=== PATIENT | female | born 1980 | race Caucasian/White ===

== ENCOUNTER → 2018-01-05 | Outpatient (CLI) | payer OTHER ==
[2018-01-05 13:41] LABS: BASO # 0.1 10^3/uL (0.0-0.2); EOS # 0.1 10^3/uL (0.0-0.50); EOS % 2.2 % (0.0-3.0); HEMATOCRIT 41.6 % (36.0-47.0); HEMOGLOBIN 14.3 g/dl (12.0-15.5); IMMATURE GRANULOCYTE % 0.8 % (0-3.0); LYMPH # 1.9 10^3/uL (1.5-4.5); LYMPH % 31.4 % (24.0-44.0); MEAN CORPUSCULAR HEMOGLOBIN 29.9 pg (27.0-33.0); MEAN CORPUSCULAR HGB CONC 34.4 g/dl (32.0-36.5); MONO # 0.4 10^3/uL (0.0-0.8); MONO % 6.2 % (0.0-5.0); NEUTROPHILS # 3.5 10^3/uL (1.8-7.7); NEUTROPHILS % 58.4 % (36.0-66.0); PLATELET COUNT, AUTOMATED 215 10^3/uL (150-450); RED BLOOD COUNT 4.78 10^6/uL (4.00-5.40); RED CELL DISTRIBUTION WIDTH 12.3 % (11.5-14.5)
[2018-01-05 14:00] LABS: TOTAL 25(OH) VITAMIN D 23.9 NG/ML (30.0-100.0)
[2018-01-05 14:07] LABS: ALBUMIN 4.2 GM/DL (3.2-5.2); ALBUMIN/GLOBULIN RATIO 1.31 (1.00-1.93); ALKALINE PHOSPHATASE 66 U/L (45-117); ALT/SGPT 24 U/L (12-78); ANION GAP 3 MEQ/L (8-16); AST/SGOT 13 U/L (7-37); BILIRUBIN,TOTAL 0.5 MG/DL (0.2-1.0); BLOOD UREA NITROGEN 12 MG/DL (7-18); CALCIUM LEVEL 8.9 MG/DL (8.5-10.1); CARBON DIOXIDE LEVEL 27 MEQ/L (21-32); CHLORIDE LEVEL 110 MEQ/L (98-107); CREATININE FOR GFR 0.74 MG/DL (0.55-1.30); GLOMERULAR FILTRATION RATE > 60.0 (>60); GLUCOSE, FASTING 97 MG/DL (70-100); POTASSIUM SERUM 4.2 MEQ/L (3.5-5.1); SODIUM LEVEL 140 MEQ/L (136-145); THYROID STIMULATING HORMONE 0.525 uIU/ML (0.358-3.740); TOTAL PROTEIN 7.4 GM/DL (6.4-8.2)
== END ==
LOC: M SMT 08:18
DX: Z13.29 Encounter for screening for other suspected endocrine disorder (principal); Z13.0 Encounter for screening for diseases of the blood and blood-forming organs and certain disorders involving the immune mechanism

== ENCOUNTER → 2018-08-07 | Outpatient (REF) | payer OTHER | LOC: M LAB REF 09:29 | DX: R30.0 Dysuria (principal) ==

== ENCOUNTER → 2018-10-23 | Outpatient (REF) | payer OTHER ==
[2018-10-23 10:52] LABS: BASO % 0.8 % (0.0-1.0); EOS # 0.1 10^3/uL (0.0-0.50); EOS % 1.9 % (0.0-3.0); HEMATOCRIT 40.2 % (36.0-47.0); HEMOGLOBIN 13.8 g/dl (12.0-15.5); LYMPH # 1.4 10^3/uL (1.5-4.5); MEAN CORPUSCULAR HEMOGLOBIN 30.3 pg (27.0-33.0); MEAN CORPUSCULAR HGB CONC 34.3 g/dl (32.0-36.5); MEAN CORPUSCULAR VOLUME 88.2 fl (80.0-96.0); MONO # 0.5 10^3/uL (0.0-0.8); MONO % 9.2 % (0.0-5.0); NEUTROPHILS # 3.2 10^3/uL (1.8-7.7); NEUTROPHILS % 60.9 % (36.0-66.0); PLATELET COUNT, AUTOMATED 224 10^3/uL (150-450); RED BLOOD COUNT 4.56 10^6/uL (4.00-5.40); WHITE BLOOD COUNT 5.2 10^3/uL (4.0-10.0)
[2018-10-23 10:59] LABS: ALBUMIN 3.9 GM/DL (3.2-5.2); ALT/SGPT 21 U/L (12-78); BILIRUBIN,DIRECT 0.2 MG/DL (0.0-0.2); BILIRUBIN,TOTAL 0.5 MG/DL (0.2-1.0); BLOOD UREA NITROGEN 10 MG/DL (7-18); CALCIUM LEVEL 8.5 MG/DL (8.5-10.1); CARBON DIOXIDE LEVEL 25 MEQ/L (21-32); CHLORIDE LEVEL 107 MEQ/L (98-107); CREATININE FOR GFR 0.68 MG/DL (0.55-1.30); GLOMERULAR FILTRATION RATE > 60.0 (>60); GLUCOSE, FASTING 96 MG/DL (70-100); LIPASE 158 U/L (73-393); POTASSIUM SERUM 3.9 MEQ/L (3.5-5.1); SODIUM LEVEL 139 MEQ/L (136-145); TOTAL PROTEIN 7.1 GM/DL (6.4-8.2)
== END ==
LOC: M LABDRAW1 08:50
PROVIDERS: ATTEND Physician Assistant
DX: R10.10 Upper abdominal pain, unspecified (principal)

== ENCOUNTER → 2019-08-12 | Outpatient (CLI) | payer OTHER ==
[2019-08-12 17:20] LABS: FREE T4 0.87 NG/DL (0.76-1.46); THYROID STIMULATING HORMONE 1.13 uIU/ML (0.358-3.740)
== END ==
LOC: M WUC 14:56
PROVIDERS: ATTEND Family Medicine
DX: Z13.29 Encounter for screening for other suspected endocrine disorder (principal)

== ENCOUNTER → 2019-11-22 | Outpatient (CLI) | payer OTHER ==
[2019-11-22 12:59] LABS: BASO # 0.1 10^3/uL (0.0-0.2); BASO % 0.8 % (0.0-1.0); EOS # 0.1 10^3/uL (0.0-0.5); EOS % 1.7 % (0.0-3.0); HEMOGLOBIN 14.2 g/dl (12.0-15.5); LYMPH % 30.5 % (24.0-44.0); MEAN CORPUSCULAR HEMOGLOBIN 30.1 pg (27.0-33.0); MEAN CORPUSCULAR VOLUME 91.3 fl (80.0-96.0); MONO # 0.5 10^3/uL (0.0-0.8); MONO % 7.7 % (0.0-5.0); NEUTROPHILS # 3.9 10^3/uL (1.5-8.5); NEUTROPHILS % 59.1 % (36.0-66.0); PLATELET COUNT, AUTOMATED 213 10^3/uL (150-450); RED BLOOD COUNT 4.71 10^6/uL (4.00-5.40); WHITE BLOOD COUNT 6.5 10^3/uL (4.0-10.0)
[2019-11-22 13:39] LABS: ALBUMIN 4.3 GM/DL (3.2-5.2); ALT/SGPT 24 U/L (12-78); BILIRUBIN,TOTAL 0.6 MG/DL (0.2-1.0); BLOOD UREA NITROGEN 11 MG/DL (7-18); CALCIUM LEVEL 9.2 MG/DL (8.5-10.1); CARBON DIOXIDE LEVEL 30 MEQ/L (21-32); CHLORIDE LEVEL 104 MEQ/L (98-107); CREATININE FOR GFR 0.69 MG/DL (0.55-1.30); FREE T4 0.99 NG/DL (0.76-1.46); GLOMERULAR FILTRATION RATE > 60.0 (>60); GLUCOSE, FASTING 95 MG/DL (70-100); POTASSIUM SERUM 4.3 MEQ/L (3.5-5.1); SODIUM LEVEL 138 MEQ/L (136-145); THYROID STIMULATING HORMONE 0.795 uIU/ML (0.358-3.740); TOTAL 25(OH) VITAMIN D 60.4 NG/ML (30.0-100.0); TOTAL PROTEIN 7.3 GM/DL (6.4-8.2)
== END ==
LOC: M WUC 09:09
PROVIDERS: ATTEND Family Medicine
DX: Z13.29 Encounter for screening for other suspected endocrine disorder (principal); Z13.0 Encounter for screening for diseases of the blood and blood-forming organs and certain disorders involving the immune mechanism; E55.9 Vitamin D deficiency, unspecified

== ENCOUNTER → 2019-12-17 | Outpatient (REF) | payer OTHER | LOC: M LAB REF 16:52 | PROVIDERS: ATTEND Physician Assistant | DX: N39.0 Urinary tract infection, site not specified (principal) ==

== ENCOUNTER → 2020-07-14 | Outpatient (REF) | payer OTHER | LOC: M LAB REF 16:44 | PROVIDERS: ATTEND Family Medicine | DX: R30.0 Dysuria (principal) ==

== ENCOUNTER 2020-09-20 12:33 | Emergency (ER) | payer BC, OTHER, SELFPAY ==
[~2020-09-20] VITALS: Ht 162.6 cm; Wt 63.8 kg
[2020-09-20 12:33] VITALS: BP 140/81
[2020-09-20] MEDS ORDERED: OMEP-218 PO (12:43)
[2020-09-20] MEDS ORDERED: MULTTAB61 PO (12:43)
[2020-09-20] MEDS ORDERED: VITAD400CA PO (12:43)
[2020-09-20 13:53] LABS: RSV AMPLIFICATION NEGATIVE (NEGATIVE)
== END 2020-09-20 14:29 | disposition home or self-care (01) ==
LOC: M ED 12:33
DX: U07.1 COVID-19 (principal); Z79.899 Other long term (current) drug therapy

== ENCOUNTER 2020-10-17 06:32 | Emergency (ER) | payer BC ==
[~2020-10-17] VITALS: Ht 162.6 cm; Wt 63.6 kg
[~2020-10-17 06:32] MED LIST: MULTTAB61 PO; OMEP-218 PO; VITAD400CA PO
[2020-10-17] MEDS ORDERED: VITA500C24 PO (06:38)
--- OUTSIDE RECORDS SUMMARY | 2020-10-17 06:38 | CCD ---
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 Role Phone ZACHARY-SHELIA, TISHA DO Unavailable Unavailable ZACHARY-SHELIA, TISHA DO Unavailable Unavailable ZACHARY-SHELIA, TISHA DO Unavailable Unavailable ZACHARY-SHELIA, TISHA DO Unavailable Unavailable ZACHARY-SHELIA, TISHA DO Unavailable Unavailable ZACHARY-SHELIA, TISHA DO Unavailable Unavailable ZACHARY-SHELIA, TISHA DO Unavailable Unavailable ZACHARY-SHELIA, TISHA DO Unavailable Unavailable ZACHARY-SHELIA, TISHA DO Unavailable Unavailable ZACHARY-SHELIA, TISHA DO Unavailable Unavailable ZACHARY-SHELIA, TISHA DO Unavailable Unavailable ZACHARY-SHELIA, TISHA DO Unavailable Unavailable ZACHARY-SHELIA, TISHA DO Unavailable Unavailable ZACHARY-SHELIA, TISHA DO Unavailable Unavailable ZACHARY-SHELIA, TISHA DO Unavailable Unavailable ZACHARY-SHELIA, TISHA DO Unavailable Unavailable ZACHARY-SHELIA, TISHA DO Unavailable Unavailable ZACHARY-SHELIA, TISHA DO Unavailable Unavailable ZACHARY-SHELIA, TISHA DO Unavailable Unavailable ZACHARY-SHELIA, TISHA DO Unavailable Unavailable ZACHARY-SHELIA, TISHA DO Unavailable Unavailable ZACHARY-SHELIA, TISHA DO Unavailable Unavailable ZACHARY-SHELIA, TISHA DO Unavailable Unavailable ZACHARY-SHELIA, TISHA DO Unavailable Unavailable ZACHARY-SHELIA, TISHA DO Unavailable Unavailable ZACHARY-SHELIA, TISHA DO Unavailable Unavailable ZACHARY-SHELIA, TISHA DO Unavailable Unavailable ZACHARY-SHELIA, TISHA DO Unavailable Unavailable ZACHARY-SHELIA, TISHA DO Unavailable Unavailable ZACHARY-SHELIA, TISHA DO Unavailable Unavailable ZACHARY-SHELIA, TISHA DO Unavailable Unavailable ZACHARY-SHELIA, TISHA DO Unavailable Unavailable ZACHARY-SHELIA, TSIHA DO Unavailable Unavailable ZACHARY-SHELIA, TISHA DO Unavailable Unavailable ZACHARY-SHELIA, TISHA DO Unavailable Unavailable ZACHARY-SHELIA, TISHA DO Unavailable Unavailable ZACHARY-SHELIA, TISHA DO Unavailable Unavailable ZACHARY-SHELIA, TISHA DO Unavailable Unavailable ZACHARY-SHELIA, TISHA DO Unavailable Unavailable ZACHARY-SHELIA, TISHA DO Unavailable Unavailable ZACHARY-SHELIA, TISHA DO Unavailable Unavailable ZACHARY-SHELIA, TISHA DO Unavailable Unavailable ZACHARY-SHELIA, TISHA DO Unavailable Unavailable ZACHARY-SHELIA, TISHA DO Unavailable Unavailable ZACHARY-SHELIA, TISHA DO Unavailable Unavailable ZACHARY-SHELIA, TISHA DO Unavailable Unavailable ZACHARY-SHELIA, TISHA DO Unavailable Unavailable ZACHARY-SHELIA, TISHA DO Unavailable Unavailable ZACHARY-SHELIA, TISHA DO Unavailable Unavailable ZACHARY-SHELIA, TISHA DO Unavailable Unavailable ZACHARY-SHELIA, TISHA DO Unavailable Unavailable ZACHARY-SHELIA, TISHA DO Unavailable Unavailable ZACHARY-SHELIA, TISHA DO Unavailable Unavailable ZACHARY-SHELIA, TISHA DO Unavailable Unavailable ZACHARY-SHELIA, TISHA DO Unavailable Unavailable ZACHARY-SHELIA, TISHA DO Unavailable Unavailable ZACHARY-SHELIA, TISHA DO Unavailable Unavailable ZACHARY-SHELIA, TISHA DO Unavailable Unavailable ZACHARY-SHELIA, TISHA DO Unavailable Unavailable ZACHARY-SHELIA, TISHA DO Unavailable Unavailable ZACHARY-SHELIA, TISHA DO Unavailable Unavailable ZACHARY-SHELIA, TISHA DO Unavailable Unavailable ZACHARY-SHELIA, TISHA DO Unavailable Unavailable ZACHARY-SHELIA, TISHA DO Unavailable Unavailable ZACHARY-SHELIA, TISHA DO Unavailable Unavailable ZACHARY-SHELIA, TISHA DO Unavailable Unavailable ZACHARY-SHELIA, TISHA DO Unavailable Unavailable ZACHARY-SHELIA, TISHA DO Unavailable Unavailable ZACHARY-SHELIA, TISHA DO Unavailable Unavailable ZACHARY-SHELIA, TISHA DO Unavailable Unavailable ZACHARY-SHELIA, TISHA DO Unavailable Unavailable ZACHARY-SHELIA, TISHA DO Unavailable Unavailable ZACHARY-SHELIA, TISHA DO Unavailable Unavailable ZACHARY-SHELIA, TISHA DO Unavailable Unavailable ZACHARY-SHELIA, TISHA DO Unavailable Unavailable ZACHARY-SHELIA, TISHA DO Unavailable Unavailable ZACHARY-SHELIA, TISHA DO Unavailable Unavailable AZCHARY-SHELIA, TISHA DO Unavailable Unavailable ZACHARY-SHELIA, TISHA DO Unavailable Unavailable ZACHARY-SHELIA, TISHA DO Unavailable Unavailable ZACHARY-SHELIA, TISHA DO Unavailable Unavailable ZACHARY-SHELIA, TISHA DO Unavailable Unavailable O'drake, A Kenton PA Unavailable Unavailable O'drake, A Kenton PA Unavailable Unavailable O'drake, A Kenton PA Unavailable Unavailable O'drake, A Kenton PA Unavailable Unavailable O'drake, A Kenton PA Unavailable Unavailable O'drake, A Kenton PA Unavailable Unavailable O'drake, A Kenton PA Unavailable Unavailable O'drake, A Kenton PA Unavailable Unavailable O'drake, A Kenton PA Unavailable Unavailable O'drake, A Kenton PA Unavailable Unavailable O'drake, A Kenton PA Unavailable Unavailable O'drake, A Kenton PA Unavailable Unavailable O'drake, A Kenton PA Unavailable Unavailable O'drake, A Kenton PA Unavailable Unavailable O'drake, A Kenton PA Unavailable Unavailable O'drake, A Kenton PA Unavailable Unavailable O'drake, A Kenton PA Unavailable Unavailable O'drake, A Kenton PA Unavailable Unavailable O'drake, A Kenton PA Unavailable Unavailable O'drake, A Kenton PA Unavailable Unavailable O'drake, A Kenton PA Unavailable Unavailable O'drake, A Kenton PA Unavailable Unavailable O'drake, A Kenton PA Unavailable Unavailable O'drake, A Kenton PA Unavailable Unavailable O'drake, A Kenton PA Unavailable Unavailable O'drake, A Kenton PA Unavailable Unavailable O'drake, A Kenton PA Unavailable Unavailable O'drake, A Kenton PA Unavailable Unavailable O'drake, A Kenton PA Unavailable Unavailable O'drake, A Kenton PA Unavailable Unavailable O'drake, A Kenton PA Unavailable Unavailable O'drake, A Kenton PA Unavailable Unavailable LETTIERE, A KENTON PA Unavailable Unavailable LETTIERE, A KENTON PA Unavailable Unavailable LETTIERE, A KENTON PA Unavailable Unavailable LETTIERE, A KENTON PA Unavailable Unavailable LETTIERE, A KENTON PA Unavailable Unavailable LETTIERE, A KENTON PA Unavailable Unavailable LETTIERE, A KENTON PA Unavailable Unavailable LETTIERE, A KENTON PA Unavailable Unavailable LETTIERE, A KENTON PA Unavailable Unavailable LETTIERE, A KENTON PA Unavailable Unavailable LETTIERE, A KENTON PA Unavailable Unavailable LETTIERE, A KENTON PA Unavailable Unavailable LETTIERE, A KENTON PA Unavailable Unavailable LETTIERE, A KENTON PA Unavailable Unavailable LETTIERE, A KENTON PA Unavailable Unavailable LETTIERE, A KENTON PA Unavailable Unavailable LETTIERE, A KENTON PA Unavailable Unavailable LETTIERE, A KENTON PA Unavailable Unavailable LETTIERE, A KENTON PA Unavailable Unavailable LETTIERE, A KENTON PA Unavailable Unavailable LETTIERE, A KENTON PA Unavailable Unavailable LETTIERE, A KENTON PA Unavailable Unavailable LETTIERE, A KENTON PA Unavailable Unavailable LETTIERE, A KENTON PA Unavailable Unavailable LETTIERE, A KENTON PA Unavailable Unavailable LETTIERE, A KENTON PA Unavailable Unavailable LETTIERE, A KENTON PA Unavailable Unavailable LETTIERE, A KENTON PA Unavailable Unavailable LETTIERE, A KENTON PA Unavailable Unavailable Re-disclosure Warning The records that you are about to access may contain information from federally-assisted alcohol or drug abuse programs. If such information is present, then the following federally mandated warning applies: This information has been disclosed to you from records protected by federal confidentiality rules (42 CFR part 2). The federal rules prohibit you from making any further disclosure of this information unless further disclosure is expressly permitted by the written consent of the person to whom it pertains or as otherwise permitted by 42 CFR part 2. A general authorization for the release of medical or other information is NOT sufficient for this purpose. The Federal rules restrict any use of the information to criminally investigate or prosecute any alcohol or drug abuse patient.The records that you are about to access may contain highly sensitive health information, the redisclosure of which is protected by Article 27-F of the [facility] Public Health law. If you continue you may have access to information: Regarding HIV / AIDS; Provided by facilities licensed or operated by the [facility] Office of Mental Health; or Provided by the [facility] Office for People With Developmental Disabilities. If such information is present, then the following [facility] mandated warning applies: This information has been disclosed to you from confidential records which are protected by state law. State law prohibits you from making any further disclosure of this information without the specific written consent of the person to whom it pertains, or as otherwise permitted by law. Any unauthorized further disclosure in violation of state law may result in a fine or assisted sentence or both. A general authorization for the release of medical or other information is NOT sufficient authorization for further disc losure. Family History Family Member Name Family Member Gender Family Member Status Date o f Status Description Data Source(s) Unknown Unknown Problem [facility] ([facility]) Unknown Female Problem [facility] ([facility]) Unknown Female Problem [facility] ([facility] Unknown Female Problem [facility] ([facility]) Encounters Encounter Providers Location Date Indications Data Source(s ) Outpatient Attender: KENTON garza 09/15/2020 09:15:00 AM EST [facility] ([facility] Outpatient Attender: TISHA ENRIQUEZ DO [facility] 09/01/2020 12:30:00 PM EST [facility] ([facility]) Outpatient Attender: TISHA ENRIQUEZ DO [facility] 07/14/2020 02:30:00 PM EDT [facility] ([facility]) Outpatient Attender: Kenton BOND [facility] 06/17/2020 01:45:00 PM EDT [facility] ([facility]) Outpatient Attender: Kenton BOND [facility] 04/03/2020 09:30:00 AM EDT [facility] ([facility]) Outpatient Attender: Kenton BOND [facility] 12/17/2019 10:30:00 AM EDT [facility] ([facility]) Outpatient Attender: TISHA ENRIQUEZ DO [facility] 12/03/2019 03:30:00 PM EDT [facility] ([facility]) Outpatient Attender: TISHA ENRIQUEZ DO [facility] 11/18/2019 03:00:00 PM EST [facility] ([facility]) Medications Medication Brand Name Start Date Product Form Dose Route Admi nistrative Instructions Pharmacy Instructions Status Indications Reaction Description Data Source(s) 17 gram 09/02/2020 12:00:00 AM EST powder in packet 12 MIX 1 PACKET WITH 8OZ OF WATER DAILY NEEDED MIX 1 PACKET WITH 8OZ OF WATER DAILY NEEDED SOLD: 09/02/2020 [facility] 25 mg 09/02/2020 12:00:00 AM EST suppository 12 INSERT ONE SUPPOSITORY RECTALLY EVERY DAY NEEDED INSERT ONE SUPPOSITORY RECTALLY EVERY DA Y NEEDED SOLD: 09/02/2020 [facility] POLYETHYLENE GLYCOL 3350 142 MG/ML Oral Solution [Miralax] M iralax 09/01/2020 12:00:00 AM EST active M EDENT ([facility]) hydrocortisone acetate 25 MG Rectal Suppository Hydrocortiso ne Acetate 09/01/2020 12:00:00 AM EST active [facility] ([facility]) Cephalexin 500 MG Oral Capsule CEPHALEXIN 08/20/2020 12:00:00 AM EST capsule 28 TAKE ONE CAPSULE BY MOUTH EVERY 6 HOURS FOR 7 DAYS SHANNA E ONE CAPSULE BY MOUTH EVERY 6 HOURS FOR 7 DAYS SOLD: 08/20/2020 [facility] Levofloxacin 250 MG Oral Tablet Levofloxacin 07/14/2020 12:00:00 AM E DT ORAL completed [facility] ([facility]) Phenazopyridine hydrochloride 200 MG Oral Tablet [Pyridium] Pyridium 07/14/2020 12:00:00 AM EDT ORAL completed [facility] ([facility]) Ketoconazole 20 MG/ML Medicated Shampoo Ketoconazole 07/14/20 20 12:00:00 AM EDT completed [facility] ([facility]) Ketoconazole 20 MG/ML Medicated Shampoo KETOCONAZOLE 07/14/20 20 12:00:00 AM EDT shampoo 120 USE TO SHAMPOO TWICE WEEKLY D IRECTED USE TO SHAMPOO TWICE WEEKLY DIRECTED SOLD: 07/14/2020 [facility] 250 mg 07/14/2020 12:00:00 AM EDT tablet 7 TAKE 1 TABLET BY MOUTH DAILY FOR 7 DAYS TAKE 1 TABLET BY MOUTH DAILY FOR 7 DAYS SOLD: 07/14/2020 [facility] 200 mg 07/14/2020 12:00:00 AM EDT tablet 21 TAKE ONE TABLET BY MOUTH THREE TIMES A DAY FOR 7 DAYS TAKE ONE TABLET BY MOUTH THREE TIMES A DAY FOR 7 DAYS SOLD: 07/14/2020 [facility] 100 mg 06/18/2020 12:00:00 AM EDT capsule 30 TAKE TWO CAPSULES BY MOUTH EVERY DAY FOR 14 DAYS TAKE TWO CAPSULES BY MOUTH EVERY DAY FOR 14 DAYS SOLD: 06/19/2020 [facility] Itraconazole 100 MG Oral Capsule Itraconazole 06/17/2020 12:00:00 AM EDT ORAL completed [facility] ([facility]) 4 mg 04/03/2020 12:00:00 AM EDT tablet 9 TAKE 1-2 TABLETS BY MOUTH EVERY 6 HOURS NEEDED FOR NAUSEA TAKE 1-2 TABLETS BY MOUTH EVERY 6 HOURS NEEDED FOR NAUSEA SOLD: 04/04/2020 [facility] Ondansetron 4 MG Oral Tablet [Zofran] Zofran 04/03/2020 12:00:00 AM EDT ORAL active [facility] ([facility]) 500 mg 12/17/2019 12:00:00 AM EDT tablet 14 TAKE 1 TABLET BY MOUTH EVERY 12 HOURS TAKE 1 TABLET BY MOUTH EVERY 12 HOURS SOLD: 12/17/2019 [facility] 200 mg 12/17/2019 12:00:00 AM EDT tablet 9 TAKE ONE TABLET BY MOUTH EVERY 8 HOURS FOR 3 DAYS TAKE ONE TABLET BY MOUTH EVERY 8 HOURS FOR 3 DAYS SOLD : 12/17/2019 [facility] Ciprofloxacin 500 MG Oral Tablet Ciprofloxacin HCL 12/17/2019 12:00 :00 AM EDT completed [facility] ([facility]) Phenazopyridine hydrochloride 200 MG Delayed Release O ral Tablet Phenazopyridine HCL 12/17/2019 12:00:00 AM EDT ORAL completed [facility] ([facility]) 500 mg 10/23/2019 12:00:00 AM EST tablet 28 TAKE ONE TABLET BY MOUTH FOUR TIMES A DAY FOR 7 DAYS TAKE ONE TABLET BY MOUTH FOUR TIMES A DAY FOR 7 DAYS SOLD: 10/23/2019 [facility] Prednisone 20 MG Oral Tablet Prednisone 07/02/2019 12:00:00 AM EDT ORAL completed [facility] ([facility]) Amoxicillin 875 MG / Clavulanate 125 MG Oral Tablet Am oxicillin/Clavulanate Potassium 07/02/2019 12:00:00 AM EDT ORAL completed [facility] ([facility]) Insurance Providers Payer name Policy type / Coverage type Policy ID Covered green party ID Covered green party's relationship to olguin Policy Olguin Plan Information [employer] [place]/307 [id number] SP [id number] [employer] [place] 302/307 [id number] SP [id number] SELF PAY ONLY [id number] SP [id number] [employer] [place] 306/[phone] [id number] SP [id number] UMR [facility] [id number] SP [id number] UMR [facility] [id number] SP [id number] [employer] Med[employer] Part B [id number] Self [id number] Umr Commercial [id number] Self [id number] [employer] Medig[employer] Part B [id number] Self [id number] [facility] [id number] Self [id number] UMR O [id number] S [id number] UMR O UNAVAILABLE S UNAVAILA BLE Umr/c/[employer] (HMO) [id number] Self [id number] [employer] [id number] SP [id number] [employer] [id number] Self [id number] [employer] Commercial [id number] Self [id number] [employer] [id number] Self [id number] [employer] Self [id number] Surgeries/Procedures Procedure Description Date Indications Data Source(s) Omt 7-8 [facility] 12/03/2019 12:00:00 AM EDT [facility] ([facility]) Results ID Date Data Source [id number] 09/20/2020 01:09:00 PM EST [facility] Name Value Range Interpretation Code Description Data Maggy rce(s) Supporting Document(s) SARS coronavirus 2 RNA [Presence] in Res piratory specimen by JENNIFER with probe detection [facility] This lab was ordered by [facility] a nd reported by [facility]. ID Date Data Source [id number] 09/15/2020 12:00:00 AM EST [facility] Name Value Range Interpretation Code Description Data Maggy rce(s) Supporting Document(s) SARS coronavirus 2 Ag [facility] This lab was ordered by [facility] and reported by [facility]. ID Date Data Source [id number] 07/14/2020 02:43:00 PM EDT [facility] ([facility]) Name Value Range Interpretation Code Description Data Maggy rce(s) Supporting Document(s) Inhouse Nitrite Laboratory test result [facility] ([facility]) Inhouse Leukocytes Laboratory test result [facility] ([facility]) Inhouse Protein Laboratory test result [facility] ([facility]) Inhouse PH 6 [facility] ([facility]) Inhouse Urobilinogen Laboratory test result [facility] ([facility]) Inhouse Specific [place] 1.025 [facility] ([facility]) Inhouse Hemoglobin Laboratory test result [facility] ([facility]) Inhouse Ketones Laboratory test result [facility] ([facility]) Inhouse Bilirubin Laboratory test result [facility] ([facility]) Inhouse Glucose Laboratory test result [facility] ([facility]) ID Date Data Source [id number] 07/14/2020 02:30:00 PM EDT [facility] ([facility]) Name Value Range Interpretation Code Description Data Maggy rce(s) Supporting Document(s) Bacteria identified in Urine by Culture Laboratory test result Normal (applies to non-numeric results) [facility] ([facility]) <content>FULL REPORT IN LAB NOTES ([facility] a nd [facility]).</content>
<content></content>
<content>ORGANISM 1: ESCHERICHIA COLI</content>
<content></content>
<content>COLONY COUNT > 100,000</content>
<content></content>
<content></content>
<content>O RGANISM 1: ESCHERICHIA COLI</content>
<content></content>
<content> ESCHERICHIA COLI: REACTION</content>
<content>TRIMETHOPRIM/SULFAMETHOXAZOLE IV 160mg TMP & 800mg SMXq6h >=320 R</content>
<content> TRIMETHOPRIM/SULFAMETHOXAZOLE PO Bactrim DS Bid >=320 R</content>
<content>AMPICILLIN IV 500mg q6h >=32 R</content>
<content>AMPICILLIN PO 500mg q6h fasting >=32 R</content>
<content>GENTAMICIN IV 80mg q8h >=16 R</content>
<content>NITROFURANTOIN PO 100mg BID 32 S</content>
<content>CEFAZOLIN IV 1gm q8h <=4 S</content>
<content>LEVOFLOXACIN IV 500mg qd <=0.12 S</content>
<content>LEVOFLOXACIN PO 250mg qd <=0.12 S</content>
<content>LEVOFLOXACIN PO 500mg qd <=0.12 S</content>
<content>TOBRAMYCIN IV 80mg q8h 2 S</content>
<content> CEFTRIAXONE IV 1gm q24h <=1 S</content>
<content>CEFTAZIDIME IV 1gm q8h <=1 S</content>
<content>AMPICILLIN/SULBACTAM IV 1.5g q6h >=32 R</content>
<content>PIPERACILLIN/TAZOBACTAM IV 2.25 gm q6h <=4 S</content>
<content>AZTREONAM IV 1gm q8h <=1 S</content>
<content>ERTAPENEM IV 1gm qd <=0.5 S</content>
<content> MEROPENEM IV 1 gm q8h <=0.25 S</content>
<content>MEROPENEM IV 500 mg q8h <=0.25 S</content>
<content>TIGECYCLINE IV 50mg q12h <=0.5 S</content>
<content>CEFEPIME IV 1 gm q12h <=1 S</content>
<content>CEFEPIME IV 2 gm q12h <=1 S</content>
<content>EXTD BRD SPCTRM BETA LACTAMASE IV NEGATIVE FOR ESBL</content>
<content></content> ID Date Data Source [id number] 12/17/2019 11:14:00 AM EDT [facility] ([facility]) Name Value Range Interpretation Code Description Data Maggy rce(s) Supporting Document(s) Inhouse Leukocytes Laboratory test result [facility] ([facility]) Inhouse Urobilinogen 0.2 [facility] ([facility]) Inhouse Nitrite Laboratory test result [facility] ([facility]) Inhouse Protein Laboratory test result [facility] ([facility]) Inhouse Hemoglobin Laboratory test result [facility] ([facility]) Inhouse PH 5.0 [facility] ([facility]) Inhouse Bilirubin Laboratory test result [facility] ([facility]) Inhouse Specific [place] 1.015 [facility] ([facility]) Inhouse Ketones Laboratory test result [facility] ([facility]) Inhouse Glucose Laboratory test result [facility] ([facility]) ID Date Data Source [id number] 12/17/2019 11:05:00 AM EDT [facility] ([facility]) Name Value Range Interpretation Code Description Data Maggy rce(s) Supporting Document(s) Bacteria identified in Urine by Culture Laboratory test result Normal (applies to non-numeric results) [facility] ([facility]) <content>FULL REPORT IN LAB NOTES ([facility] a nd [facility]).</content>
<content></content>
<content>ORGANISM 1: ESCHERICHIA COLI</content>
<content></content>
<content>COLONY COUNT > 100,000</content>
<content></content>
<content></content>
<content>O RGANISM 1: ESCHERICHIA COLI</content>
<content></content>
<content> ESCHERICHIA COLI: REACTION</content>
<content>TRIMETHOPRIM/SULFAMETHOXAZOLE IV 160mg TMP & 800mg SMXq6h >=320 R</content>
<content> TRIMETHOPRIM/SULFAMETHOXAZOLE PO Bactrim DS Bid >=320 R</content>
<content>AMPICILLIN IV 500mg q6h >=32 R</content>
<content>AMPICILLIN PO 500mg q6h fasting >=32 R</content>
<content>GENTAMICIN IV 80mg q8h 8 I</content>
<content>NITROFURANTOIN PO 100mg BID 32 S</content>
<content>CEFAZOLIN IV 1gm q8h <=4 S</content>
<content>LEVOFLOXACIN IV 500mg qd <=0.12 S</content>
<content>LEVOFLOXACIN PO 250mg qd <=0.12 S</content>
<content>LEVOFLOXACIN PO 500mg qd <=0.12 S</content>
<content>TOBRAMYCIN IV 80mg q8h <=1 S</content>
<content> CEFTRIAXONE IV 1gm q24h <=1 S</content>
<content>CEFTAZIDIME IV 1gm q8h <=1 S</content>
<content>AMPICILLIN/SULBACTAM IV 1.5g q6h >=32 R</content>
<content>PIPERACILLIN/TAZOBACTAM IV 2.25 gm q6h <=4 S</content>
<content>AZTREONAM IV 1gm q8h <=1 S</content>
<content>ERTAPENEM IV 1gm qd <=0.5 S</content>
<content> MEROPENEM IV 1 gm q8h <=0.25 S</content>
<content>MEROPENEM IV 500 mg q8h <=0.25 S</content>
<content>TIGECYCLINE IV 50mg q12h <=0.5 S</content>
<content>CEFEPIME IV 1 gm q12h <=1 S</content>
<content>CEFEPIME IV 2 gm q12h <=1 S</content>
<content>EXTD BRD SPCTRM BETA LACTAMASE IV NEGATIVE FOR ESBL</content>
<content></content> ID Date Data Source [id number] 11/22/2019 09:15:00 AM EST [facility] ([facility]) Name Value Range Interpretation Code Description Data Maggy rce(s) Supporting Document(s) Thyrotropin [Units/volume] in Serum or Plasma 0.795 uIU/ML 0. 358-3.740 Normal (applies to non-numeric results) [facility] ([facility]) Thyroxine (T4) free [Mass/volume] in Serum or Plasma 0.99 ng/dL 0.76-1.46 Normal (applies to non-numeric results) [facility]) ID Date Data Source [id number] 11/22/2019 09:15:00 AM EST [facility] Name Value Range Interpretation Code Description Data Maggy rce(s) Supporting Document(s) Red Blood Count 4.71 10 4.00-5.40 Normal (applies to non-numeric results) [facility] ([facility]) White Blood Count 6.5 10 4.0-10.0 Normal (applies to non-numeri c results) [facility] Hemoglobin 14.2 g/dL 12.0-15.5 Normal (applies to non-numeric resul ts) [facility] Mean Corpuscular Volume 91.3 fl 80.0-96.0 Normal ( applies to non-numeric results) [facility] ([facility]) Hematocrit 43.0 % 36.0-47.0 Normal (applies to non-numeric resul ts) [facility] Mean Corpuscular HGB Conc 33.0 g/dL 32.0-36.5 Normal (applies to non-numeric results) [facility] ([facility]) Mean Corpuscular Hemoglobin 30.1 pg 27.0-33.0 Norm al (applies to non-numeric results) [facility] ([facility]) Red Cell Distribution Width 12.3 % 11.5-14.5 Norm al (applies to non-numeric results) [facility] ([facility] Platelet Count, Automated 213 10 150-450 Normal (applies to non-numeric results) [facility] ([facility] Neutrophils % 59.1 % 36.0-66.0 Normal (applies to non-numeric re sults) [facility] ([facility] Lymph % 30.5 % 24.0-44.0 Normal (applies to non-numeric resul ts) [facility] ([facility]) [place] % 7.7 % 0.0-5.0 Above high normal [facility] ([facility]) Eos % 1.7 % 0.0-3.0 Normal (applies to non-numeric resul ts) [facility] ([facility]) Immature Granulocyte % 0.2 % 0-3.0 Normal (applies to non-n umeric results) [facility] ([facility]) Baso % 0.8 % 0.0-1.0 Normal (applies to non-numeric resul ts) [facility] ([facility]) Nucleated Red Blood Cell % 0.0 % 0-0 Normal (applies to n on-numeric results) [facility] ([facility]) Neutrophils # 3.9 10 1.5-8.5 Normal (applies to non-numeric re sults) [facility] ([facility] Lymph # 2.0 10 1.5-5.0 Normal (applies to non-numeric resul ts) [facility] ([facility]) Eos # 0.1 10 0.0-0.5 Normal (applies to non-numeric resul ts) [facility] ([facility]) Baso # 0.1 10 0.0-0.2 Normal (applies to non-numeric resul ts) [facility] ([facility]) [place] # 0.5 10 0.0-0.8 Normal (applies to non-numeric resul ts) [facility] ([facility]) ID Date Data Source [id number] 11/22/2019 09:15:00 AM EST [facility] ([facility]) Name Value Range Interpretation Code Description Data Maggy rce(s) Supporting Document(s) Calcidiol [Mass/volume] in Serum or Plasma 60.4 ng/mL 30.0- 100.0 Normal (applies to non-numeric results) [facility] ID Date Data Source [id number] 11/22/2019 09:15:00 AM EST [facility] ([facility]) Name Value Range Interpretation Code Description Data Maggy rce(s) Supporting Document(s) Glucose, Fasting 95 mg/dL 70-100 Normal (applies to non-numeric results) [facility] ([facility]) Creatinine For GFR 0.69 mg/dL 0.55-1.30 Normal (applies to non -numeric results) [facility] ([facility]) Blood Urea Nitrogen 11 mg/dL 7-18 Normal (applies to non-nume adrian results) [facility] ([facility]) Sodium Level 138 meq/L 136-145 Normal (applies to non-numeric res ults) [facility] ([facility]) Glomerular Filtration Rate Laboratory test result Normal (applies to non- numeric results) [facility] ([facility]) <content>Units are mL/min/1.73 m2</content>
<content></content>
<content>Chronic Kidney Disease Staging per NKF:</content>
<content></content>
<content>Stage I & II GFR >=60 Normal to Mildly Decreased</content>
<content>Stage III GFR 30- 59 Moderately Decreased</content>
<content>Stage IV GFR 15-29 Severely Decreased</content>
<content>Stage V GFR <15 Very Little GFR Left</content>
<content>ESRD GFR <15 on [employer]</content>
<content></content> Chloride Level 104 meq/L 98-107 Normal (applies to non-numeric r esults) [facility] ([facility]) Potassium Serum 4.3 meq/L 3.5-5.1 Normal (applies to non-numeric results) [facility] ([facility]) Anion Gap 4 meq/L 8-16 Below low normal [facility] ( [facility] Carbon Dioxide Level 30 meq/L 21-32 Normal (applies to non-num hernán results) [facility] ([facility]) Alt/SGPT 24 U/L 12-78 Normal (applies to non-numeric resul ts) [facility] ([facility]) Calcium Level 9.2 mg/dL 8.5-10.1 Normal (applies to non-numeric re sults) [facility] ([facility]) Ast/Sgot 10 U/L 7-37 Normal (applies to non-numeric resul ts) [facility] ([facility]) Alkaline Phosphatase 52 U/L 45-117 Normal (applies to non-num hernán results) [facility] ([facility]) Bilirubin,Total 0.6 mg/dL 0.2-1.0 Normal (applies to non-numeric results) [facility] ([facility]) Albumin 4.3 GM/DL 3.2-5.2 Normal (applies to non-numeric resul ts) [facility] ([facility]) Total Protein 7.3 GM/DL 6.4-8.2 Normal (applies to non-numeric re sults) [facility] ([facility]) Albumin/Globulin Ratio 1.43 1.00-1.93 Normal (applies to non-numeric results) [facility] ([facility]) Procedure Social History Code Duration Value Status Description Data Source(s ) Smoking 09/15/2020 12:00:00 AM EST Patient has never smoked co mpleted Patient has never smoked [facility] ([facility]) Smoking 11/18/2019 12:00:00 AM EST Patient has never smoked co mpleted Patient has never smoked [facility] ([facility] Vital Signs ID Date Data Source UNK Name Value Range Interpretation Code Description Data Source(s) Body mass index (BMI) [Ratio] 25.4 kg/m2 25.4 k g/m2 [facility] ([facility], [facility]) Body height 64 [in_i] 64 [in_i] [facility] ([facility]) 5'4" Body weight 148.00 [lb_av] 148.00 [lb_av] [facility] T ([facility], [facility]) Body temperature 98.0 [degF] 98.0 [degF] [facility] ([facility], [facility]) Oxygen saturation in Arterial blood by Pulse oximetry 99 % 99 % [facility] ([facility], [facility]) Respiratory rate 16 /min 16 /min [facility] ( [facility], [facility]) Heart rate 78 /min 78 /min [facility] ([facility], [facility]) Diastolic blood pressure 78 mm[Hg] 78 mm[Hg] [facility] ([facility], [facility]) Systolic blood pressure 120 mm[Hg] 120 mm[Hg] M [facility] ([facility], [facility]) [place] body weight 115 [lb_av] 115 [lb_av] [facility] ([facility] Oxygen saturation in Arterial blood by Pulse oximetry 99 % 99 % [facility] ([facility] Body temperature 98.6 [degF] 98.6 [degF] [facility] ([facility]) Respiratory rate 18 /min 18 /min [facility] ( [facility] Heart rate 91 /min 91 /min [facility] ([facility] Body mass index (BMI) [Ratio] 28.0 kg/m2 28.0 k g/m2 [facility] ([facility] Body weight 162.00 [lb_av] 162.00 [lb_av] [facility] ([facility] Body height 63.75 [in_i] 63.75 [in_i] [facility] ([facility] 5'3.75" Diastolic blood pressure 78 mm[Hg] 78 mm[Hg] [facility] ([facility]) Systolic blood pressure 114 mm[Hg] 114 mm[Hg] [facility] [place] body weight 115 [lb_av] 115 [lb_av] [facility] ([facility]) Oxygen saturation in Arterial blood by Pulse oximetry 99 % 99 % [facility] ([facility] Body temperature 98.0 [degF] 98.0 [degF] [facility] ([facility]) Respiratory rate 16 /min 16 /min [facility] ( [facility] Heart rate 98 /min 98 /min [facility] ([facility] Body mass index (BMI) [Ratio] 24.6 kg/m2 24.6 k g/m2 [facility] ([facility] Body weight 142.12 [lb_av] 142.12 [lb_av] [facility] ([facility] Body height 63.75 [in_i] 63.75 [in_i] [facility] ([facility]) 5'3.75" Diastolic blood pressure 80 mm[Hg] 80 mm[Hg] [facility] ([facility]) Systolic blood pressure 120 mm[Hg] 120 mm[Hg] M [facility] ([facility]) Systolic blood pressure 122 mm[Hg] 122 mm[Hg] [facility] [place] body weight 115 [lb_av] 115 [lb_av] [facility] ([facility]) Oxygen saturation in Arterial blood by Pulse oximetry 99 % 99 % [facility] ([facility] Body temperature 99.3 [degF] 99.3 [degF] [facility] ([facility]) Respiratory rate 18 /min 18 /min [facility] ( [facility] Heart rate 99 /min 99 /min [facility] ([facility] Body mass index (BMI) [Ratio] 24.8 kg/m2 24.8 k g/m2 [facility] ([facility] Body weight 143.50 [lb_av] 143.50 [lb_av] [facility] ([facility] Body height 63.75 [in_i] 63.75 [in_i] [facility] ([facility]) 5'3.75" Diastolic blood pressure 72 mm[Hg] 72 mm[Hg] [facility] ([facility]) [place] body weight 115 [lb_av] 115 [lb_av] [facility] ([facility] Oxygen saturation in Arterial blood by Pulse oximetry 99 % 99 % [facility] ([facility] Body temperature 98.5 [degF] 98.5 [degF] [facility] ([facility]) Respiratory rate 18 /min 18 /min [facility] ( [facility] Heart rate 107 /min 107 /min [facility] ([facility] Body mass index (BMI) [Ratio] 25.6 kg/m2 25.6 k g/m2 [facility] ([facility] Body weight 148.12 [lb_av] 148.12 [lb_av] [facility] ([facility] Body height 63.75 [in_i] 63.75 [in_i] [facility] ([facility]) 5'3.75" Diastolic blood pressure 74 mm[Hg] 74 mm[Hg] [facility] ([facility] Systolic blood pressure 114 mm[Hg] 114 mm[Hg] M [facility] ([facility]) Oxygen saturation in Arterial blood by Pulse oximetry 100 % 100 % [facility] ([facility] Body temperature 97.8 [degF] 97.8 [degF] [facility] ([facility] Respiratory rate 18 /min 18 /min [facility] ( [facility] Heart rate 104 /min 104 /min [facility] ([facility]) Body mass index (BMI) [Ratio] 25.3 kg/m2 25.3 k g/m2 [facility] Body weight 146.25 [lb_av] 146.25 [lb_av] [facility] ([facility] Body height 63.75 [in_i] 63.75 [in_i] [facility] ([facility]) 5'3.75" Diastolic blood pressure 70 mm[Hg] 70 mm[Hg] [facility] ([facility] Systolic blood pressure 118 mm[Hg] 118 mm[Hg] M [facility] ([facility]) Oxygen saturation in Arterial blood by Pulse oximetry 99 % 99 % [facility] ([facility] Body temperature 99.4 [degF] 99.4 [degF] [facility] ([facility] Respiratory rate 18 /min 18 /min [facility] ( [facility] Heart rate 99 /min 99 /min [facility] ([facility] Body mass index (BMI) [Ratio] 25.8 kg/m2 25.8 k g/m2 [facility] ([facility] Body weight 149.12 [lb_av] 149.12 [lb_av] [facility] ([facility] Body height 63.75 [in_i] 63.75 [in_i] [facility] ([facility]) 5'3.75" Diastolic blood pressure 68 mm[Hg] 68 mm[Hg] [facility] ([facility] Systolic blood pressure 116 mm[Hg] 116 mm[Hg] M [facility] ([facility] Oxygen saturation in Arterial blood by Pulse oximetry 99 % 99 % [facility] ([facility] Body temperature 98.9 [degF] 98.9 [degF] [facility] ([facility] Respiratory rate 18 /min 18 /min [facility] ( [facility] Heart rate 94 /min 94 /min [facility] ([facility] Body mass index (BMI) [Ratio] 26.1 kg/m2 26.1 k g/m2 [facility] ([facility] Body weight 151.12 [lb_av] 151.12 [lb_av] [facility] ([facility] Body height 63.75 [in_i] 63.75 [in_i] [facility] ([facility] 5'3.75" Diastolic blood pressure 76 mm[Hg] 76 mm[Hg] [facility] ([facility] Systolic blood pressure 118 mm[Hg] 118 mm[Hg] M [facility] ([facility])
--- OUTSIDE RECORDS SUMMARY | 2020-10-17 07:29 | CCD ---
Author Author [facility] Organization [facility] Address Unknown Phone Unavailable Care Team Providers Care Forging Operator Name Role Phone ZACHARY-SHELIA, TISHA DO [...] is protected by Article 27-F of the [facility] Public Health law. If you continue you may have access to information: Regarding HIV / AIDS; Provided by facilities licensed or operated by the [facility] Office of Mental Health; or Provided by the [facility] Office for People With Developmental Disabilities. If such information is present, then the following [facility] mandated warning applies: This information [...] law may result in a fine or fdc sentence or both. A general authorization for the release of medical or other information is NOT sufficient authorization for further disc losure. Family History Family Member Name Family Member Gender Family Member Status Date o f Status Description Data Source(s) Unknown Unknown Problem [facility] ([facility]) Unknown Female Problem [facility] ([facility]) Unknown Female Problem [facility] ([facility]) Unknown Female Problem [facility] ([facility]) Encounters Encounter Providers Location Date Indications Data Source(s ) Outpatient Attender: KENTON garza 09/15/2020 09:15:00 AM EST [facility] ([facility]) Outpatient Attender: TISHA ENRIQUEZ DO [facility] 09/01/2020 12:30:00 PM EST [facility] ([facility]) Outpatient Attender: TISHA ENRIQUEZ DO [facility] 07/14/2020 02:30:00 PM EDT [facility] ([facility]) Outpatient Attender: Kenton BOND [facility] 06/17/2020 01:45:00 PM EDT [facility] ([facility]) Outpatient Attender: Kenton BOND [facility] 04/03/2020 09:30:00 AM EDT [facility] ([facility]) Outpatient Attender: Kenton BOND [facility] 12/17/2019 10:30:00 AM EDT [facility] ([facility]) Outpatient Attender: TISHA ENRIQUEZ [facility] 12/03/2019 03:30:00 PM EDT [facility] ([facility]) Outpatient Attender: TISHA ENRIQUEZ [facility] 11/18/2019 03:00:00 PM EST [facility] ([facility]) Medications Medication Brand Name Start Date [...] 09/01/2020 12:00:00 AM EST active M EDENT ([facility]) hydrocortisone acetate 25 MG Rectal Suppository Hydrocortiso ne Acetate 09/01/2020 12:00:00 AM EST active MED[facility] ([facility]) Cephalexin 500 MG Oral Capsule CEPHALEXIN 08/20/2020 12:00:00 AM EST capsule 28 TAKE ONE CAPSULE BY MOUTH EVERY 6 HOURS FOR 7 DAYS SHANNA E ONE CAPSULE BY MOUTH EVERY 6 HOURS FOR 7 DAYS SOLD: 08/20/2020 [facility] Levofloxacin 250 MG Oral Tablet Levofloxacin 07/14/2020 12:00:00 AM E DT ORAL completed [facility] ([facility]) Phenazopyridine hydrochloride 200 MG Oral Tablet [Pyridium] Pyridium 07/14/2020 12:00:00 AM EDT ORAL completed [facility] ([facility]) Ketoconazole 20 MG/ML Medicated Shampoo Ketoconazole 07/14/20 20 12:00:00 AM EDT completed [facility] ([facility]) Ketoconazole 20 MG/ML Medicated Shampoo KETOCONAZOLE 07/14/20 [...] EVERY DAY FOR 14 DAYS SOLD: 06/19/2020 [facility] Itraconazole 100 MG Oral Capsule Itraconazole 06/17/2020 12:00:00 AM EDT ORAL completed [facility] ([facility]) 4 mg 04/03/2020 12:00:00 AM EDT tablet 9 TAKE 1-2 TABLETS BY MOUTH EVERY 6 HOURS NEEDED FOR NAUSEA TAKE 1-2 TABLETS BY MOUTH EVERY 6 HOURS NEEDED FOR NAUSEA SOLD: 04/04/2020 [facility] Ondansetron 4 MG Oral Tablet [Zofran] Zofran 04/03/2020 12:00:00 AM EDT ORAL active [facility] ([facility]) 500 mg 12/17/2019 12:00:00 AM EDT [...] 12/17/2019 12:00 :00 AM EDT completed [facility] ([facility]) Phenazopyridine hydrochloride 200 MG Delayed Release O ral Tablet Phenazopyridine HCL 12/17/2019 12:00:00 AM EDT ORAL completed [facility] ([facility]) 500 mg 10/23/2019 12:00:00 AM EST tablet 28 TAKE ONE TABLET BY MOUTH FOUR TIMES A DAY FOR 7 DAYS TAKE ONE TABLET BY MOUTH FOUR TIMES A DAY FOR 7 DAYS SOLD: 10/23/2019 [facility] Prednisone 20 MG Oral Tablet Prednisone 07/02/2019 12:00:00 AM EDT ORAL completed MED[facility] ([facility]) Amoxicillin 875 MG / Clavulanate 125 MG Oral Tablet Am oxicillin/Clavulanate Potassium 07/02/2019 12:00:00 AM EDT ORAL completed MED[facility] ([facility]) Insurance Providers Payer name Policy type / Coverage type Policy ID Covered constitution party ID Covered constitution party's relationship to olguin Policy Olguin Plan Information [employer] [phone] [id number] SP [id number] [employer] [place]/[phone] [id number] SP [id number] SELF PAY ONLY [id number] SP [id number] [employer] [place] 306/[phone] [id number] SP [id number] [facility]MR [facility] [id number] SP [id number] [facility]MR [facility] [id number] SP [id number] [employer] Med[employer] Part B [id number] Self [id number] Umr Commercial [id number] Self [id number] [employer] Part B [id number] Self [id number] [employer] Med[employer] Part B [id number] Self [id number] UMR O [id number] S [id number] UMR O UNAVAILABLE S UNAVAILA BLE Umr/[facility]/[employer] (HMO) [id number] Self [id number] [employer] [id number] SP [id number] [employer] [id number] Self [id number] [employer] [id number] Self [id number] [employer] [id number] Self [id number] [employer] Self [id number] Surgeries/Procedures Procedure Description Date Indications Data Source(s) Omt 7-8 Body Regions 12/03/2019 12:00:00 AM EDT MED[facility] ([facility]) Results ID Date Data Source [id number] 09/20/2020 01:09:00 PM EST [facility] Name Value Range Interpretation Code Description Data Maggy rce(s) Supporting Document(s) SARS coronavirus 2 RNA [Presence] in Res piratory specimen by JENNIFER with probe detection [facility] This lab was ordered by [facility] a nd reported by [facility]. ID Date Data Source [id number] 09/15/2020 12:00:00 AM EST [facility] Name Value Range Interpretation Code Description Data Maggy rce(s) Supporting Document(s) SARS coronavirus 2 Ag [facility] This lab was ordered by [facility] and reported by [facility]. ID Date Data Source [id number] 07/14/2020 02:43:00 PM EDT MED[facility] ([facility]) Name Value Range Interpretation Code Description Data Maggy rce(s) Supporting Document(s) Inhouse Nitrite Laboratory test result MED[facility] ([facility]) Inhouse Leukocytes Laboratory test result [facility] ([facility]) Inhouse Protein Laboratory test result [facility] ([facility]) Inhouse PH 6 [facility] ([facility]) Inhouse Urobilinogen Laboratory test result [facility] ([facility]) Inhouse Specific [place] 1.025 [facility] ([facility]) Inhouse Hemoglobin Laboratory test result [facility] ([facility]) Inhouse Ketones Laboratory test result [facility] ([facility]) Inhouse Bilirubin Laboratory test result [facility] ([facility]) Inhouse Glucose Laboratory test result [facility] ([facility]) ID Date Data Source [id number] 07/14/2020 02:30:00 PM EDT [facility] ([facility]) Name Value Range Interpretation Code Description Data Maggy rce(s) Supporting Document(s) Bacteria identified in Urine by Culture Laboratory test result Normal (applies to non-numeric results) [facility] ([facility]) <content>FULL REPORT IN LAB NOTES (eCW a [...] FOR ESBL</content>
<content></content> ID Date Data Source [id number] 12/17/2019 11:14:00 AM EDT [facility] ([facility]) Name Value Range Interpretation Code Description Data Maggy rce(s) Supporting Document(s) Inhouse Leukocytes Laboratory test result [facility] ([facility]) Inhouse Urobilinogen 0.2 [facility] ([facility]) Inhouse Nitrite Laboratory test result [facility] ([facility]) Inhouse Protein Laboratory test result [facility] ([facility]) Inhouse Hemoglobin Laboratory test result [facility] ([facility]) Inhouse PH 5.0 [facility] ([facility]) Inhouse Bilirubin Laboratory test result [facility] ([facility]) Inhouse Specific [place] 1.015 [facility] ([facility]) Inhouse Ketones Laboratory test result [facility] ([facility]) Inhouse Glucose Laboratory test result [facility] ([facility]) ID Date Data Source [id number] 12/17/2019 11:05:00 AM EDT [facility] ([facility]) Name Value Range Interpretation Code Description Data Maggy rce(s) Supporting Document(s) Bacteria identified in Urine by Culture Laboratory test result Normal (applies to non-numeric results) [facility] ([facility]) <content>FULL REPORT IN LAB NOTES (eCW a [...] FOR ESBL</content>
<content></content> ID Date Data Source [id number] 11/22/2019 09:15:00 AM EST [facility] ([facility]) Name Value Range Interpretation Code Description Data Maggy rce(s) Supporting Document(s) Thyrotropin [Units/volume] in Serum or Plasma 0.795 uIU/ML 0. 358-3.740 Normal (applies to non-numeric results) [facility] ([facility]) Thyroxine (T4) free [Mass/volume] in Serum or Plasma 0.99 ng/dL 0.76-1.46 Normal (applies to non-numeric results) [facility] ([facility]) ID Date Data Source [id number] 11/22/2019 09:15:00 AM EST [facility] ([facility]) Name Value Range Interpretation Code Description Data Maggy rce(s) Supporting Document(s) Red Blood Count 4.71 10 4.00-5.40 Normal (applies to non-numeric results) [facility] White Blood Count 6.5 10 4.0-10.0 Normal (applies to non-numeri c results) [facility] ([facility]) Hemoglobin 14.2 g/dL 12.0-15.5 Normal (applies to non-numeric resul ts) [facility] Mean Corpuscular Volume 91.3 fl 80.0-96.0 Normal ( applies to non-numeric results) [facility] ([facility]) Hematocrit 43.0 % 36.0-47.0 Normal (applies to non-numeric resul ts) [facility] Mean Corpuscular HGB Conc 33.0 g/dL 32.0-36.5 Normal (applies to non-numeric results) [facility] ([facility]) Mean Corpuscular Hemoglobin 30.1 pg 27.0-33.0 Norm al (applies to non-numeric results) [facility] ([facility]) Red Cell Distribution Width 12.3 % 11.5-14.5 Norm al (applies to non-numeric results) [facility] ([facility]) Platelet Count, Automated 213 10 150-450 Normal (applies to non-numeric results) [facility] ([facility]) Neutrophils % 59.1 % 36.0-66.0 Normal (applies to non-numeric re sults) [facility] ([facility]) Lymph % 30.5 % 24.0-44.0 Normal (applies to non-numeric resul ts) [facility] ([facility]) [place] % 7.7 % 0.0-5.0 Above high normal [facility] ([facility]) Eos % 1.7 % 0.0-3.0 Normal (applies to non-numeric resul ts) [facility] ([facility]) Immature Granulocyte % 0.2 % 0-3.0 Normal (applies to non-n umeric results) [facility] ([facility]) Baso % 0.8 % 0.0-1.0 Normal (applies to non-numeric resul ts) [facility] ([facility]) Nucleated Red Blood Cell % 0.0 % 0-0 Normal (applies to n on-numeric results) [facility] ([facility]) Neutrophils # 3.9 10 1.5-8.5 Normal (applies to non-numeric re sults) [facility] ([facility]) Lymph # 2.0 10 1.5-5.0 Normal (applies to non-numeric resul ts) [facility] ([facility]) Eos # 0.1 10 0.0-0.5 Normal (applies to non-numeric resul ts) [facility] ([facility]) Baso # 0.1 10 0.0-0.2 Normal (applies to non-numeric resul ts) [facility] ([facility]) [place] # 0.5 10 0.0-0.8 Normal (applies to non-numeric resul ts) [facility] ID Date Data Source [id number] 11/22/2019 09:15:00 AM EST [facility] ([facility]) Name Value Range Interpretation Code Description Data Maggy rce(s) Supporting Document(s) Calcidiol [Mass/volume] in Serum or Plasma 60.4 ng/mL 30.0- 100.0 Normal (applies to non-numeric results) [facility] ([facility]) ID Date Data Source [id number] 11/22/2019 09:15:00 AM EST [facility] ([facility]) Name Value Range Interpretation Code Description Data Maggy rce(s) Supporting Document(s) Glucose, Fasting 95 mg/dL 70-100 Normal (applies to non-numeric results) [facility] ([facility]) Creatinine For GFR 0.69 mg/dL 0.55-1.30 Normal (applies to non -numeric results) [facility] ([facility]) Blood Urea Nitrogen 11 mg/dL 7-18 Normal (applies to non-nume adrian results) [facility] ([facility]) Sodium Level 138 meq/L 136-145 Normal (applies to non-numeric res ults) [facility] ([facility]) Glomerular Filtration Rate Laboratory test result Normal (applies to non- numeric results) [facility] ([facility]) <content>Units are mL/min/1.73 m2</content>
<content></content>
<content>Chronic Kidney Disease Staging per NKF:</content>
<content></content>
<content>Stage I & II GFR >=60 Normal to Mildly Decreased</content>
<content>Stage III GFR 30- 59 Moderately Decreased</content>
<content>Stage IV GFR 15-29 Severely Decreased</content>
<content>Stage V GFR <15 Very Little GFR Left</content>
<content>ESRD GFR <15 on DISPATCH OFFICER</content>
<content></content> Chloride Level 104 meq/L 98-107 Normal (applies to non-numeric r esults) [facility] Potassium Serum 4.3 meq/L 3.5-5.1 Normal (applies to non-numeric results) [facility] ([facility]) Anion Gap 4 meq/L 8-16 Below low normal [facility] ( [facility]) Carbon Dioxide Level 30 meq/L 21-32 Normal (applies to non-num hernán results) [facility] ([facility]) Alt/SGPT 24 U/L 12-78 Normal (applies to non-numeric resul ts) [facility] ([facility]) Calcium Level 9.2 mg/dL 8.5-10.1 Normal (applies to non-numeric re sults) [facility] Ast/Sgot 10 U/L 7-37 Normal (applies to non-numeric resul ts) [facility] Alkaline Phosphatase 52 U/L 45-117 Normal (applies to non-num hernán results) [facility] ([facility]) Bilirubin,Total 0.6 mg/dL 0.2-1.0 Normal (applies to non-numeric results) [facility] Albumin 4.3 GM/DL 3.2-5.2 Normal (applies to non-numeric resul ts) [facility] Total Protein 7.3 GM/DL 6.4-8.2 Normal (applies to non-numeric re sults) [facility] ([facility]) Albumin/Globulin Ratio 1.43 1.00-1.93 Normal (applies to non-numeric results) [facility] ([facility]) Procedure Social History Code Duration Value Status Description Data Source(s ) Smoking 09/15/2020 12:00:00 AM EST Patient has never smoked co mpleted Patient has never smoked [facility] ([facility]) Smoking 11/18/2019 12:00:00 AM EST Patient has never smoked co mpleted Patient has never smoked [facility] Vital Signs ID Date Data Source UNK Name Value Range Interpretation Code Description Data Source(s) Body mass index (BMI) [Ratio] 25.4 kg/m2 25.4 k g/m2 [facility] ([facility]) Body height 64 [in_i] 64 [in_i] [facility] ([facility]) 5'4" Body weight 148.00 [lb_av] 148.00 [lb_av] MEDEN T ([facility], [facility]) Body temperature 98.0 [degF] 98.0 [degF] [facility] ([facility]) Oxygen saturation in Arterial blood by Pulse oximetry 99 % 99 % [facility] ([facility]) Respiratory rate 16 /min 16 /min [facility] ( [facility]) Heart rate 78 /min 78 /min [facility] ([facility]) Diastolic blood pressure 78 mm[Hg] 78 mm[Hg] [facility] ([facility]) Systolic blood pressure 120 mm[Hg] 120 mm[Hg] M EDENT ([facility], [facility]) [place] body weight 115 [lb_av] 115 [lb_av] MEDEN T ([facility]) Oxygen saturation in Arterial blood by Pulse oximetry 99 % 99 % [facility] Body temperature 98.6 [degF] 98.6 [degF] [facility] ([facility]) Respiratory rate 18 /min 18 /min [facility] ( [facility]) Heart rate 91 /min 91 /min [facility] Body mass index (BMI) [Ratio] 28.0 kg/m2 28.0 k g/m2 [facility] ([facility]) Body weight 162.00 [lb_av] 162.00 [lb_av] MEDEN T ([facility]) Body height 63.75 [in_i] 63.75 [in_i] [facility] ([facility]) 5'3.75" Diastolic blood pressure 78 mm[Hg] 78 mm[Hg] [facility] ([facility]) Systolic blood pressure 114 mm[Hg] 114 mm[Hg] M EDENT ([facility]) [place] body weight 115 [lb_av] 115 [lb_av] MEDEN T ([facility]) Oxygen saturation in Arterial blood by Pulse oximetry 99 % 99 % [facility] Body temperature 98.0 [degF] 98.0 [degF] [facility] ([facility]) Respiratory rate 16 /min 16 /min [facility] ( [facility]) Heart [facility] 98 /min 98 /[facility] Body mass index (BMI) [Ratio] 24.6 kg/m2 24.6 k g/m2 [facility] ([facility]) Body weight 142.12 [lb_av] 142.12 [lb_av] MEDEN T ([facility]) Body height 63.75 [in_i] 63.75 [in_i] [facility] ([facility]) 5'3.75" Diastolic blood pressure 80 mm[Hg] 80 mm[facility]Hg[facility] Systolic blood pressure 120 mm[Hg] 120 mm[facility]Hg] [facility] Systolic blood pressure 122 mm[Hg] 122 mm[Hg] M EDENT ([facility]) [place] body weight 115 [lb_av] 115 [lb_av] MEDEN T ([facility]) Oxygen saturation in Arterial blood by Pulse oximetry 99 % 99 % [facility] Body temperature 99.3 [degF] 99.3 [degF] [facility] ([facility]) Respiratory rate 18 /min 18 /min [facility] ( [facility]) Heart rate 99 /min 99 /min [facility] ([facility]) Body mass index (BMI) [Ratio] 24.8 kg/m2 24.8 k g/m2 [facility] ([facility]) Body weight 143.50 [lb_av] 143.50 [lb_av] MEDEN T ([facility]) Body height 63.75 [in_i] 63.75 [in_i] [facility] ([facility]) 5'3.75" Diastolic blood pressure 72 mm[Hg] 72 mm[Hg] [facility] ([facility]) [place] body weight 115 [lb_av] 115 [lb_av] MEDEN T ([facility]) Oxygen saturation in Arterial blood by Pulse oximetry 99 % 99 % [facility] ([facility]) Body temperature 98.5 [degF] 98.5 [degF] [facility] ([facility]) Respiratory rate 18 /min 18 /min [facility] ( [facility]) Heart rate 107 /min 107 /min [facility] ([facility]) Body mass index (BMI) [Ratio] 25.6 kg/m2 25.6 k g/m2 [facility] ([facility]) Body weight 148.12 [lb_av] 148.12 [lb_av] MEDEN T ([facility]) Body height 63.75 [in_i] 63.75 [in_i] [facility] ([facility]) 5'3.75" Diastolic blood pressure 74 mm[Hg] 74 mm[Hg] [facility] ([facility]) Systolic blood pressure 114 mm[Hg] 114 mm[Hg] M EDENT ([facility]) Oxygen saturation in Arterial blood by Pulse oximetry 100 % 100 % [facility] Body temperature 97.8 [degF] 97.8 [degF] [facility] ([facility]) Respiratory rate 18 /min 18 /min [facility] ( [facility]) Heart rate 104 /min 104 /[facility] Body mass index (BMI) [Ratio] 25.3 kg/m2 25.3 k g/m2 [facility] ([facility]) Body weight 146.25 [lb_av] 146.25 [lb_av] MEDEN T ([facility]) Body height 63.75 [in_i] 63.75 [in_i] MEDENT ([facility]) 5'3.75" Diastolic blood pressure 70 mm[Hg] 70 mm[Hg] MEDENT ([facility]) Systolic blood pressure 118 mm[Hg] 118 mm[Hg] M EDENT ([facility]) Oxygen saturation in Arterial blood by Pulse oximetry 99 % 99 % MEDENT ([facility]) Body temperature 99.4 [degF] 99.4 [degF] MEDENT ([facility]) Respiratory rate 18 /min 18 /min MEDENT ( [facility]) Heart rate 99 /min 99 /min MEDENT ([facility]) Body mass index (BMI) [Ratio] 25.8 kg/m2 25.8 k g/m2 MED[facility] ([facility]) Body weight 149.12 [lb_av] 149.12 [lb_av] MEDEN T ([facility]) Body height 63.75 [in_i] 63.75 [in_i] MEDENT ([facility]) 5'3.75" Diastolic blood pressure 68 mm[Hg] 68 mm[Hg] MEDENT ([facility]) Systolic blood pressure 116 mm[Hg] 116 mm[Hg] [facility] Oxygen saturation in Arterial blood by Pulse oximetry 99 % 99 % [facility] ([facility]) Body temperature 98.9 [degF] 98.9 [degF] [facility] Respiratory rate 18 /min 18 /min [facility] Heart rate 94 /min 94 /min [facility] ([facility]) Body mass index (BMI) [Ratio] 26.1 kg/m2 26.1 k g[facility] Body weight 151.12 [lb_av] 151.12 [lb_av] MEDEN T ([facility]) Body height 63.75 [in_i] 63.75 [in_i] MEDENT ([facility]) 5'3.75" Diastolic blood pressure 76 mm[Hg] 76 mm[Hg] MEDENT ([facility]) Systolic blood pressure 118 mm[Hg] 118 mm[Hg] M EDENT ([facility])
[2020-10-17] MEDS ORDERED: NS 1,000 ML IV ONE (07:30)
[2020-10-17 07:31] LABS: BASO # 0.1 10^3/uL (0.0-0.2); BASO % 0.6 % (0.0-1.0); EOS # 0.3 10^3/uL (0.0-0.5); EOS % 4.1 % (0.0-3.0); HEMATOCRIT 43.2 % (36.0-47.0); HEMOGLOBIN 14.2 g/dl (12.0-15.5); LYMPH % 36.6 % (24.0-44.0); MEAN CORPUSCULAR HGB CONC 32.9 g/dl (32.0-36.5); MEAN CORPUSCULAR VOLUME 88.2 fl (80.0-96.0); MONO # 0.6 10^3/uL (0.0-0.8); MONO % 7.1 % (0.0-5.0); NEUTROPHILS # 4.2 10^3/uL (1.5-8.5); NEUTROPHILS % 51.4 % (36.0-66.0); PLATELET COUNT, AUTOMATED 216 10^3/uL (150-450); WHITE BLOOD COUNT 8.3 10^3/uL (4.0-10.0)
[2020-10-17 07:49] LABS: HCG, SERUM QUALITATIVE NEGATIVE (NEGATIVE)
[2020-10-17 07:59] LABS: ALT/SGPT 20 U/L (12-78); BILIRUBIN,DIRECT 0.2 MG/DL (0.0-0.2); BILIRUBIN,TOTAL 0.6 MG/DL (0.2-1.0); BLOOD UREA NITROGEN 9 MG/DL (7-18); CALCIUM LEVEL 9.3 MG/DL (8.5-10.1); CARBON DIOXIDE LEVEL 26 MEQ/L (21-32); CHLORIDE LEVEL 104 MEQ/L (98-107); CREATININE FOR GFR 0.77 MG/DL (0.55-1.30); GLOMERULAR FILTRATION RATE > 60.0 (>60); GLUCOSE, FASTING 109 MG/DL (70-100); MAGNESIUM LEVEL 1.9 MG/DL (1.8-2.4); POTASSIUM SERUM 3.6 MEQ/L (3.5-5.1); SODIUM LEVEL 140 MEQ/L (136-145); TOTAL PROTEIN 7.5 GM/DL (6.4-8.2)
--- NOTE | 2020-10-17 08:59 | REP ---
INDICATION: CHEST PAIN. COMPARISON: No comparison chest x-ray. TECHNIQUE: Portable upright AP chest radiograph. FINDINGS: The lungs are well inflated and free of infiltrate. Pleural angles are sharp. Heart size is normal. Pulmonary vasculature is not increased. Monitoring electrodes are seen. IMPRESSION: No active disease. <Electronically signed by Howard Jarvis > 10/17/20 0800
[2020-10-17 09:15] VITALS: BP 139/74
--- NOTE | 2020-10-17 09:35 | ECGEPIP ---
[facility] [place] - ED Test Date: 2020-10-17 Pat Name: ANDREWS CRABTREE Department: Room: - Gender: Female [employer] Faculty Member: : 1980 Requested By: NICOLASA Ramon Order Number: [id number] Reading MD: Connie Arevalo Measurements Intervals Bryan Rate: 125 P: 58 AR: 112 QRS: 91 QRSD: 89 T: -3 QT: 314 QTc: 453 Interpretive Statements SINUS TACHYCARDIA WITH SHORT AR INTERVAL BORDERLINE RIGHT AXIS DEVIATION NONSPECIFIC T-WAVE ABNORMALITY No prior Electronically Signed on 10-17-2020 9:35:27 EST by Connie Arevalo
== END 2020-10-17 09:44 | disposition home or self-care (01) ==
LOC: M ED 06:32
DX: R00.0 Tachycardia, unspecified (principal); K21.9 Gastro-esophageal reflux disease without esophagitis; Z79.899 Other long term (current) drug therapy

== ENCOUNTER → 2020-12-06 | Outpatient (CLI) | payer BC ==
[~2020-12-06] MED LIST changes: +VITA500C24 PO
[2020-12-06 11:12] LABS: CHOLESTEROL RISK RATIO 2.982 (<5); FREE T4 0.84 NG/DL (0.76-1.46); THYROID STIMULATING HORMONE 0.432 uIU/ML (0.358-3.740)
== END ==
LOC: M LAB 10:09
PROVIDERS: ATTEND Family Medicine
DX: Z13.220 Encounter for screening for lipoid disorders (principal); Z13.29 Encounter for screening for other suspected endocrine disorder

== ENCOUNTER → 2021-07-05 | Outpatient (CLI) | payer BC ==
[2021-07-05 12:06] LABS: BASO % 0.6 % (0.0-1.0); EOS # 0.1 10^3/uL (0.0-0.5); EOS % 1.6 % (0.0-3.0); HEMATOCRIT 37.8 % (36.0-47.0); HEMOGLOBIN 12.6 g/dl (12.0-15.5); LYMPH # 1.9 10^3/uL (1.5-5.0); LYMPH % 27.7 % (24.0-44.0); MEAN CORPUSCULAR HEMOGLOBIN 30.1 pg (27.0-33.0); MEAN CORPUSCULAR HGB CONC 33.3 g/dl (32.0-36.5); MEAN CORPUSCULAR VOLUME 90.4 fl (80.0-96.0); MONO # 0.5 10^3/uL (0.0-0.8); MONO % 7.5 % (2.0-8.0); NEUTROPHILS # 4.3 10^3/uL (1.5-8.5); NEUTROPHILS % 62.3 % (36.0-66.0); PLATELET COUNT, AUTOMATED 249 10^3/uL (150-450); RED BLOOD COUNT 4.18 10^6/uL (4.00-5.40); WHITE BLOOD COUNT 6.9 10^3/uL (4.0-10.0)
[2021-07-05 12:33] LABS: PERCENT SATURATION 26.3 % (13.2-45.0)
[2021-07-05 13:03] LABS: ERYTHROCYTE SEDIMENTATION RATE 8 mm/hr (0-20)
== END ==
LOC: M WUC 09:23
PROVIDERS: ATTEND Family Medicine
DX: R20.2 Paresthesia of skin (principal)

== ENCOUNTER → 2021-07-13 | Outpatient (REF) | payer BC | LOC: M LAB REF 17:41 | PROVIDERS: ATTEND Family Medicine | DX: G44.52 New daily persistent headache (NDPH) (principal) ==

== ENCOUNTER → 2021-07-14 | Outpatient (CLI) | payer BC ==
[~2021-07-14] MED LIST changes: +ISOVUE-370 76% 100ML VIAL As Ordered ONE
--- NOTE | 2021-07-14 09:33 | REPVR ---
PROCEDURE INFORMATION: Exam: CT Head Without And With Contrast Exam date and time: 07/14/2021 9:17 AM Age: 40 years old Clinical indication: Pain; Headache; Additional info: Headaches TECHNIQUE: Imaging protocol: Computed tomography of the head without and with intravenous contrast. Radiation optimization: All CT scans at this facility use at least one of these dose optimization techniques: automated exposure control; mA and/or kV adjustment per patient size (includes targeted exams where dose is matched to clinical indication); or iterative reconstruction. Contrast material: ISOVUE 370; Contrast volume: 75 ml; Contrast route: INTRAVENOUS (IV); COMPARISON: No relevant prior studies available. FINDINGS: Brain: No extra-axial fluid collection. No evidence of acute infarct. Dudley white differentiation is intact. There is no evidence of mass. There is no mass effect or midline shift. Cerebral ventricles: No ventriculomegaly. Paranasal sinuses: There is a leftward 1 cm dural calcification. Mastoid air cells: Mastoid air cells and middle ear cavities are well developed and well aerated. Vasculature: Contrast enhancement is visualized in main cerebral arterial and venous structures.There is no acute intracranial hemorrhage. Bones/joints: Unremarkable. No acute fracture. Soft tissues: Unremarkable. Other findings: There is no evidence of abnormal contrast enhancement or enhancing mass. IMPRESSION: No evidence of acute intracranial abnormality. No acute hemorrhage. No evidence of acute infarct or mass. Electronically signed by: Catarina Kim On 07/14/2021 09:32:26 AM
== END ==
LOC: M RAD 08:52
PROVIDERS: ATTEND Family Medicine
DX: R51.9 Headache, unspecified (principal)

== ENCOUNTER → 2021-08-20 | Outpatient (CLI) | payer BC ==
[~2021-08-20] MED LIST changes: -ISOVUE-370 76% 100ML VIAL As Ordered ONE
[2021-08-20 13:04] LABS: HEMOGLOBIN A1c 5.1 %
[2021-08-20 13:26] LABS: FREE THYROXINE INDEX 1.8 % (1.3-4.8); T UPTAKE 35 % (30-39); THYROID STIMULATING HORMONE 0.634 uIU/ML (0.358-3.740); THYROXINE (T4) 5.1 UG/DL (4.5-12.0); TOTAL PROTEIN 7.1 GM/DL (6.4-8.2)
== END ==
LOC: M WUC 08:55
PROVIDERS: ATTEND Psychiatry & Neurology Neurology
DX: E11.40 Type 2 diabetes mellitus with diabetic neuropathy, unspecified (principal); E07.9 Disorder of thyroid, unspecified; M35.00 Sjogren syndrome, unspecified

== ENCOUNTER → 2021-12-10 | Outpatient (CLI) | payer BC ==
[~2021-12-10] MED LIST changes: +OMEP-173 PO; -OMEP-218 PO
[2021-12-10 12:11] LABS: BASO # 0.1 10^3/uL (0.0-0.2); EOS # 0.2 10^3/uL (0.0-0.5); EOS % 2.9 % (0.0-3.0); HEMATOCRIT 40.7 % (36.0-47.0); HEMOGLOBIN 13.8 g/dl (12.0-15.5); LYMPH # 2.1 10^3/uL (1.5-5.0); LYMPH % 33.2 % (24.0-44.0); MEAN CORPUSCULAR HEMOGLOBIN 30.2 pg (27.0-33.0); MEAN CORPUSCULAR HGB CONC 33.9 g/dl (32.0-36.5); MEAN CORPUSCULAR VOLUME 89.1 fl (80.0-96.0); MONO # 0.4 10^3/uL (0.0-0.8); MONO % 7.1 % (2.0-8.0); NEUTROPHILS # 3.5 10^3/uL (1.5-8.5); NEUTROPHILS % 55.6 % (36.0-66.0); PLATELET COUNT, AUTOMATED 226 10^3/uL (150-450); RED BLOOD COUNT 4.57 10^6/uL (4.00-5.40); WHITE BLOOD COUNT 6.2 10^3/uL (4.0-10.0)
[2021-12-10 12:48] LABS: ALT/SGPT 31 U/L (12-78); BILIRUBIN,TOTAL 0.4 MG/DL (0.2-1.0); BLOOD UREA NITROGEN 12 MG/DL (7-18); CALCIUM LEVEL 8.9 MG/DL (8.5-10.1); CARBON DIOXIDE LEVEL 31 MEQ/L (21-32); CHLORIDE LEVEL 107 MEQ/L (98-107); CHOLESTEROL LEVEL 200 MG/DL (<200); CHOLESTEROL RISK RATIO 3.773 (<5); CREATININE FOR GFR 0.68 MG/DL (0.55-1.30); FREE T4 0.72 NG/DL (0.76-1.46); GLOMERULAR FILTRATION RATE > 60.0 (>58); GLUCOSE, FASTING 99 MG/DL (70-100); HDL CHOLESTEROL 53 MG/DL (>40); LDL CHOLESTEROL 131 MG/DL (<100); NON-HDL-C 147 MG/DL; POTASSIUM SERUM 4.2 MEQ/L (3.5-5.1); SODIUM LEVEL 139 MEQ/L (136-145); THYROID STIMULATING HORMONE 0.588 uIU/ML (0.358-3.740); TRIGLYCERIDES LEVEL 80 MG/DL (<150)
[2021-12-10 12:51] LABS: TOTAL 25(OH) VITAMIN D 59.7 NG/ML (30.0-100.0); VITAMIN B12 LEVEL 567 PG/ML (247-911)
== END ==
LOC: M WUC 08:56
PROVIDERS: ATTEND Family Medicine
DX: Z13.0 Encounter for screening for diseases of the blood and blood-forming organs and certain disorders involving the immune mechanism (principal); Z13.29 Encounter for screening for other suspected endocrine disorder; Z13.220 Encounter for screening for lipoid disorders; E55.9 Vitamin D deficiency, unspecified; D51.8 Other vitamin B12 deficiency anemias

== ENCOUNTER → 2022-01-10 | Outpatient (CLI) | payer BC | LOC: M WHC 07:54 | PROVIDERS: ATTEND Family Medicine | DX: Z12.31 Encounter for screening mammogram for malignant neoplasm of breast (principal) ==

== ENCOUNTER → 2022-06-01 | Outpatient (REF) | payer BC | LOC: M SFHCWAGY 10:30 | PROVIDERS: ATTEND Nurse Practitioner Family | DX: Z12.4 Encounter for screening for malignant neoplasm of cervix (principal) ==

== ENCOUNTER → 2023-01-20 | Outpatient (CLI) | payer BC | LOC: M WHC 13:00 | PROVIDERS: ATTEND Family Medicine | DX: Z12.31 Encounter for screening mammogram for malignant neoplasm of breast (principal) ==

== ENCOUNTER → 2023-03-29 | Outpatient (CLI) | payer BC ==
[2023-03-29 12:29] LABS: BASO # 0.1 10^3/uL (0.0-0.2); BASO % 0.7 % (0.0-1.0); EOS # 0.2 10^3/uL (0.0-0.5); EOS % 2.8 % (0.0-3.0); HEMATOCRIT 41.7 % (36.0-47.0); HEMOGLOBIN 14.1 g/dl (12.0-15.5); LYMPH # 1.9 10^3/uL (1.5-5.0); LYMPH % 26.9 % (24.0-44.0); MEAN CORPUSCULAR HEMOGLOBIN 30.9 pg (27.0-33.0); MEAN CORPUSCULAR HGB CONC 33.8 g/dl (32.0-36.5); MEAN CORPUSCULAR VOLUME 91.4 fl (80.0-96.0); MONO # 0.5 10^3/uL (0.0-0.8); MONO % 6.4 % (2.0-8.0); NEUTROPHILS # 4.4 10^3/uL (1.5-8.5); NEUTROPHILS % 62.8 % (36.0-66.0); PLATELET COUNT, AUTOMATED 232 10^3/uL (150-450); RED BLOOD COUNT 4.56 10^6/uL (4.00-5.40)
[2023-03-29 12:59] LABS: ALBUMIN 3.9 G/DL (3.2-5.2); ALKALINE PHOSPHATASE 58 U/L (46-116); ALT/SGPT 21 U/L (7.0-40); AST/SGOT < 8 U/L (<34); BILIRUBIN,TOTAL 0.7 MG/DL (0.3-1.2); BLOOD UREA NITROGEN 10 MG/DL (9-23); CALCIUM LEVEL 9.7 MG/DL (8.5-10.1); CARBON DIOXIDE LEVEL 25 MMOL/L (20-31); CHLORIDE LEVEL 105 MMOL/L (98-107); CHOLESTEROL LEVEL 175 MG/DL (<200); CHOLESTEROL RISK RATIO 3.59 (<5); CREATININE FOR GFR 0.69 MG/DL (0.55-1.30); GLOMERULAR FILTRATION RATE > 60.0 (>58); GLUCOSE, FASTING 104 MG/DL (60-100); HDL CHOLESTEROL 48.7 MG/DL (>40); LDL CHOLESTEROL 107.9 MG/DL (<100); NON-HDL-C 126.3 MG/DL; POTASSIUM SERUM 4.2 MMOL/L (3.5-5.1); SODIUM LEVEL 138 MMOL/L (136-145); TOTAL PROTEIN 6.8 G/DL (5.7-8.2); TRIGLYCERIDES LEVEL 92 MG/DL (<150)
[2023-03-29 13:00] LABS: FREE T4 0.97 NG/DL (0.89-1.76); THYROID STIMULATING HORMONE 0.554 uIU/ML (0.55-4.78)
== END ==
LOC: M WUC 09:28
PROVIDERS: ATTEND Family Medicine
DX: Z13.29 Encounter for screening for other suspected endocrine disorder (principal); Z13.0 Encounter for screening for diseases of the blood and blood-forming organs and certain disorders involving the immune mechanism; Z13.220 Encounter for screening for lipoid disorders

== ENCOUNTER → 2023-12-01 | Outpatient (CLI) | payer BC ==
[2023-12-01 12:18] LABS: BASO % 0.7 % (0.0-1.0); EOS # 0.1 10^3/uL (0.0-0.5); EOS % 2.3 % (0.0-3.0); HEMATOCRIT 42.3 % (36.0-47.0); LYMPH # 1.8 10^3/uL (1.5-5.0); LYMPH % 29.4 % (24.0-44.0); MEAN CORPUSCULAR HEMOGLOBIN 30.1 pg (27.0-33.0); MEAN CORPUSCULAR HGB CONC 33.1 g/dl (32.0-36.5); MONO # 0.7 10^3/uL (0.0-0.8); MONO % 11.7 % (2.0-8.0); NEUTROPHILS # 3.4 10^3/uL (1.5-8.5); NEUTROPHILS % 55.6 % (36.0-66.0); PLATELET COUNT, AUTOMATED 216 10^3/uL (150-450); RED BLOOD COUNT 4.65 10^6/uL (4.00-5.40); WHITE BLOOD COUNT 6.1 10^3/uL (4.0-10.0)
[2023-12-01 12:47] LABS: ALBUMIN 3.9 G/DL (3.2-5.2); ALKALINE PHOSPHATASE 64 U/L (46-116); ALT/SGPT 16 U/L (7.0-40); AST/SGOT 8 U/L (<34); BILIRUBIN,TOTAL 0.3 MG/DL (0.3-1.2); BLOOD UREA NITROGEN 10 MG/DL (9-23); CALCIUM LEVEL 8.8 MG/DL (8.5-10.1); CARBON DIOXIDE LEVEL 28 MMOL/L (20-31); CHLORIDE LEVEL 106 MMOL/L (98-107); CHOLESTEROL LEVEL 132 MG/DL (<200); CHOLESTEROL RISK RATIO 3.35 (<5); CREATININE FOR GFR 0.68 MG/DL (0.55-1.30); GLOMERULAR FILTRATION RATE > 60.0 (>58); GLUCOSE, FASTING 101 MG/DL (60-100); HDL CHOLESTEROL 39.3 MG/DL (>40); LDL CHOLESTEROL 80.5 MG/DL (<100); NON-HDL-C 92.7 MG/DL; POTASSIUM SERUM 4.3 MMOL/L (3.5-5.1); SODIUM LEVEL 141 MMOL/L (136-145); TOTAL PROTEIN 6.5 G/DL (5.7-8.2); TRIGLYCERIDES LEVEL 61 MG/DL (<150)
[2023-12-01 12:49] LABS: FREE T4 0.93 NG/DL (0.89-1.76); THYROID STIMULATING HORMONE 0.844 uIU/ML (0.55-4.78)
[2023-12-01 12:50] LABS: VITAMIN B12 LEVEL 1444 PG/ML (211-911)
== END ==
LOC: M PLALAB 07:09
PROVIDERS: ATTEND Family Medicine
DX: D51.9 Vitamin B12 deficiency anemia, unspecified (principal); Z13.29 Encounter for screening for other suspected endocrine disorder; Z13.220 Encounter for screening for lipoid disorders; Z13.0 Encounter for screening for diseases of the blood and blood-forming organs and certain disorders involving the immune mechanism

== ENCOUNTER → 2024-01-25 | Outpatient (CLI) | payer BC | LOC: M WHC 13:03 | PROVIDERS: ATTEND Family Medicine | DX: Z12.31 Encounter for screening mammogram for malignant neoplasm of breast (principal) ==

== ENCOUNTER → 2024-07-12 | Outpatient (REF) | payer BC ==
[2024-07-16 15:03] LABS: HPV APTIMA Not Detected (Not Detected)
== END ==
LOC: M SFHCWAGY 17:43
PROVIDERS: ATTEND Nurse Practitioner Family
DX: Z12.4 Encounter for screening for malignant neoplasm of cervix (principal)

== ENCOUNTER → 2024-12-06 | Outpatient (CLI) | payer BC ==
[2024-12-06 11:08] LABS: BASO # 0.1 10^3/uL (0.0-0.2); BASO % 1.2 % (0.0-1.0); EOS # 0.2 10^3/uL (0.0-0.5); EOS % 4.1 % (0.0-3.0); LYMPH # 1.8 10^3/uL (1.5-5.0); LYMPH % 34.7 % (24.0-44.0); MEAN CORPUSCULAR HGB CONC 33.3 g/dl (32.0-36.5); MEAN CORPUSCULAR VOLUME 89.9 fl (80.0-96.0); MONO # 0.5 10^3/uL (0.0-0.8); MONO % 9.7 % (2.0-8.0); NEUTROPHILS # 2.6 10^3/uL (1.5-8.5); NEUTROPHILS % 49.9 % (36.0-66.0); PLATELET COUNT, AUTOMATED 231 10^3/uL (150-450); RED BLOOD COUNT 4.67 10^6/uL (4.00-5.40); WHITE BLOOD COUNT 5.2 10^3/uL (4.0-10.0)
[2024-12-06 11:29] LABS: THYROID STIMULATING HORMONE 1.081 uIU/ML (0.55-4.78); TOTAL 25(OH) VITAMIN D 72.9 NG/ML (20.0-100.0)
[2024-12-06 11:31] LABS: ALBUMIN 3.8 G/DL (3.2-5.2); ALKALINE PHOSPHATASE 52 U/L (35-104); ALT/SGPT 16 U/L (7.0-40); AST/SGOT 8 U/L (<34); BILIRUBIN,TOTAL 0.5 MG/DL (0.3-1.2); BLOOD UREA NITROGEN 8 MG/DL (9-23); CALCIUM LEVEL 9.1 MG/DL (8.5-10.1); CARBON DIOXIDE LEVEL 25 MMOL/L (20-31); CHLORIDE LEVEL 108 MMOL/L (98-107); CHOLESTEROL LEVEL 172 MG/DL (<200); CHOLESTEROL RISK RATIO 4.01 (<5); CREATININE FOR GFR 0.71 MG/DL (0.55-1.30); FREE T4 1.07 NG/DL (0.89-1.76); GLOMERULAR FILTRATION RATE > 60.0 (>58); GLUCOSE, FASTING 98 MG/DL (60-100); HDL CHOLESTEROL 42.8 MG/DL (>40); LDL CHOLESTEROL 113.8 MG/DL (<100); NON-HDL-C 129.2 MG/DL; POTASSIUM SERUM 4.3 MMOL/L (3.5-5.1); SODIUM LEVEL 143 MMOL/L (136-145); TOTAL PROTEIN 6.9 G/DL (5.7-8.2); TRIGLYCERIDES LEVEL 77 MG/DL (<150)
[2024-12-06 11:33] LABS: VITAMIN B12 LEVEL 1484 PG/ML (211-911)
== END ==
LOC: M PLALAB 07:13
PROVIDERS: ATTEND Family Medicine
DX: D51.9 Vitamin B12 deficiency anemia, unspecified (principal); E55.9 Vitamin D deficiency, unspecified; Z13.29 Encounter for screening for other suspected endocrine disorder; Z13.220 Encounter for screening for lipoid disorders

== ENCOUNTER → 2025-01-31 | Outpatient (CLI) | payer BC | LOC: M WHC 08:04 | PROVIDERS: ATTEND Family Medicine | DX: Z12.31 Encounter for screening mammogram for malignant neoplasm of breast (principal) ==

== ENCOUNTER → 2025-06-10 | Outpatient (CLI) | payer BC ==
[2025-06-10 19:09] LABS: BASO # 0.1 10^3/uL (0.0-0.2); BASO % 0.9 % (0.0-1.0); EOS # 0.2 10^3/uL (0.0-0.5); EOS % 1.6 % (0.0-3.0); LYMPH # 3.5 10^3/uL (1.5-5.0); LYMPH % 34.5 % (24.0-44.0); MONO # 0.9 10^3/uL (0.0-0.8); MONO % 8.9 % (2.0-8.0); NEUTROPHILS # 5.5 10^3/uL (1.5-8.5); NEUTROPHILS % 53.9 % (36.0-66.0); PLATELET COUNT, AUTOMATED 249 10^3/uL (150-450)
[2025-06-10 19:10] LABS: CALCIUM LEVEL 9.6 MG/DL (8.5-10.1); CARBON DIOXIDE LEVEL 31 MMOL/L (20-31); CHLORIDE LEVEL 102 MMOL/L (98-107); CREATININE FOR GFR 0.75 MG/DL (0.55-1.30); GLOMERULAR FILTRATION RATE > 90.0 (>58); IRON (FE) 64 UG/DL (50-170); MAGNESIUM LEVEL 2.0 MG/DL (1.8-2.4); POTASSIUM SERUM 3.7 MMOL/L (3.5-5.1); SODIUM LEVEL 139 MMOL/L (136-145)
[2025-06-10 19:11] LABS: PERCENT SATURATION 20.2 % (13.2-45.0)
[2025-06-10 19:12] LABS: FREE T4 1.38 NG/DL (0.89-1.76)
== END ==
LOC: M PLALAB 16:46
PROVIDERS: ATTEND Family Medicine
DX: L70.8 Other acne (principal)

== ENCOUNTER → 2025-07-01 | Outpatient (CLI) | payer BC | LOC: M WHC 06:43 | PROVIDERS: ATTEND Family Medicine | DX: N92.6 Irregular menstruation, unspecified (principal) ==